=== PATIENT | female | born 1970 | race Caucasian/White ===

== ENCOUNTER 2019-05-19 14:15 | Emergency (ER) | payer BC, OTHER ==
[2019-05-19] MEDS ORDERED: SODIUM CHLORIDE 1,000 ML IV STA (14:26)
[2019-05-19] MEDS ORDERED: ACETAMINOPHEN 1000 MG/100 ML VIAL (NON FORMULARY) IVPB ONE (14:26)
--- NOTE | 2019-05-19 14:26 | PDOC ---
Rapid Medical Evaluation Medical Evaluation: I have performed a brief in-person evaluation of this patient. The patient presents with a chief complaint of: sent by PCP for eval for abd pain; was taking Amoxicillin from 05/05 for tooth infection (x 1week); s/p abx, started getting generalized abd pain; PCP placed on her cipro and dicyclomine 2 days ago but pain still not improving; +nausea; denies vomiting, diarrhea, urinary complaints; hx of fibroidectomy, tonsillectomy Pertinent physical exam findings: In NAD, generalized abd tenderness (more along left side), no CVA tenderness I have ordered the following: Labs, urine The patient will proceed to the ED for further evaluation. 05/19/19 14:20
[2019-05-19 14:27] VITALS: BMI 30.7
[2019-05-19] MEDS ORDERED: ONDANSETRON 4 MG/2 ML VIAL IVPUSH ONE (14:27)
[2019-05-19 15:07] LABS: BASO % 0.3 % (0-2.0); EOS % 0.2 % (0-4.5); HEMATOCRIT 33.2 % (32.4-45.2); HEMOGLOBIN 10.5 GM/dL (10.7-15.3); LYMPH % 17.9 % (8-40); MCH 23.9 pg (25.7-33.7); MCHC 31.7 g/dl (32.0-36.0); MEAN CELL VOLUME 75.2 fl (80-96); MEAN PLT VOLUME 7.8 fl (7.5-11.1); MONO % 10.5 % (3.8-10.2); NEUT % 71.1 % (42.8-82.8); PLATELET COUNT 340 K/MM3 (134-434); RBC 4.42 M/mm3 (3.60-5.2); RDW 16.8 % (11.6-15.6); WHITE BLOOD COUNT 8.8 K/mm3 (4.0-10.0)
[2019-05-19 15:16] LABS: EPI CELLS 7.5 /HPF (0-5/HPF); HYALINE CASTS 6 /lpf (0-8); PH,URINE 5.5 (5.0-8.0); URINE APPEARANCE CLOUDY; URINE BACTERIA 4.7 /hpf (NEGATIVE); URINE BILIRUBIN NEGATIVE (NEGATIVE); URINE COLOR DK YELLOW; URINE GLUCOSE (UA) NEGATIVE (NEGATIVE); URINE KETONE 2+ (NEGATIVE); URINE LEUK ESTERASE NEGATIVE (NEGATIVE); URINE NITRITE NEGATIVE (NEGATIVE); URINE PROTEIN 1+ (NEGATIVE); URINE RBC 20 /hpf (0-4); URINE WBC 4 /hpf (0-5)
[2019-05-19 15:27] LABS: ALBUMIN 3.1 g/dl (3.4-5.0); BILIRUBIN,TOTAL 0.4 mg/dL (0.2-1); BLOOD UREA NITROGEN 5.9 mg/dL (7-18); CALCIUM 9.2 mg/dL (8.5-10.1); CREATININE 0.7 mg/dL (0.55-1.3); POTASSIUM 3.5 mmol/L (3.5-5.1); TOT PROT 7.2 g/dl (6.4-8.2)
[2019-05-19] MEDS ORDERED: ACETAMINOPHEN INJECTION 100 ML IVPB ONE (16:44)
[2019-05-19] MEDS ORDERED: ONDANSETRON 4 MG/2 ML VIAL ONE (16:44)
--- NOTE | 2019-05-19 16:57 | PDOC ---
History of Present Illness - General Chief Complaint: Pain Stated Complaint: ABD PAIN/SENT BY DR THRASHER Time Seen by Provider: 05/19/19 14:19 - History of Present Illness Initial Comments: 05/19/19 16:56 CHIEF COMPLAINT: abdominal pain HISTORY OF PRESENT ILLNESS: 49 F with hx of anxiety, chronic back pain, s/p fibroidectomy and tonsillectomy, presents to ED with abdominal pain x 2 weeks. Patient states she saw her dentist on 05/05 and was prescribed amoxicillin and has been experiencing abdominal pain since then. She reports one episode of bilious vomiting on 05/08. The pain is described as "like a rock in it, or like gas is shooting through" and is alleviated when sitting down. She saw her PCP Dr. Melo two days ago and was placed in cipro and bentyl but the pain has persisted. She denies any diarrhea. Last BM was two days ago and was normal. She denies any urinary frequency, dysuria, or hematuria. Patient reports returning from [place] and reports that she has been suffering a lot of financial stress after joining a vacation club while there. PAST MEDICAL HISTORY: anxiety, chronic back pain FAMILY HISTORY: Denies SOCIAL HISTORY: Denies tobacco, alcohol, illicit drug use. SURGICAL HISTORY: fibroidectomy, tonsillectomy ALLERGIES: ibuprofen, latex REVIEW OF SYSTEMS General/Constitutional: Denies fever or chills. Denies weakness, weight change. HEENT: Denies change in vision. Denies ear pain or discharge. Denies sore throat. Cardiovascular: Denies chest pain or shortness of breath. Respiratory: Denies cough, wheezing, or hemoptysis. Gastrointestinal: Generalized abdominal pain x 2 weeks.One episode of vomiting, no current nausea or vomiting. Denies diarrhea or constipation. Denies rectal bleeding. Genitourinary: Denies dysuria, frequency, or change in urination. Musculoskeletal: Denies joint or muscle swelling or pain. Denies neck or back pain. Skin and breasts: Denies rash or easy bruising. Neurologic: Denies headache, vertigo, loss of consciousness, or loss of sensation. Psychiatric: Denies depression or anxiety. PHYSICAL EXAM General Appearance: Pale, appropriately dressed. No apparent distress. HEENT: EOMI, PERRLA, normal ENT inspection, normal voice, TMs normal, pharynx normal. No conjunctival pallor. No photophobia, scleral icterus. Neck: Supple. Trachea midline. No tenderness, rigidity, carotid bruit, stridor , lymphadenopathy, or thyromegaly. Respiratory/Chest: Lungs CTAB. No shortness of breath, chest tenderness, respiratory distress, accessory muscle use. No crackles, rales, rhonchi, stridor , wheezing, dullness Cardiovascular: RRR. S1, S2. No JVD, murmur, bradycardia, tachycardia. Vascular Pulses: Dorsalis-Pedis (R): 2+, Dorsalis-Pedis (L): 2+ Gastrointestinal/Abdominal: Marked epigastric and RUQ tenderness. Hyperactive bowel sounds. Abdomen soft, non-distended. No tenderness or rebound tenderness. No organomegaly, pulsatile mass, guarding, hernia, hepatomegaly, splenomegaly. Lymphatic: No adenopathy, tenderness. Musculoskeletal/Extremities: Normal inspection. FROM of all extremities, normal capillary refill. Pelvis Stable. No CVA tenderness. No tenderness to extremities, pedal edema, swelling, erythema or deformity. Integumentary: Appropriate color, dry, warm. No cyanosis, erythema, jaundice or rash Neurologic: insurance claims processor II-XII intact. Fully oriented, alert. Appropriate mood/affect. Motor strength 5/5. No appreciable EOM palsy, facial droop or sensory deficit. Past History - Past Medical History Allergies/Adverse Reactions: Allergies Allergy/AdvReac Type Severity Reaction Status Date / Time ibuprofen [From Advil] Allergy Verified 05/19/19 14:24 latex Allergy Verified 05/19/19 14:24 COPD: No - Immunization History Immunization Up to Date: Yes - Suicide/Smoking/Psychosocial Hx Smoking History: Never smoked Hx Alcohol Use: No Drug/Substance Use Hx: No *Physical Exam - Vital Signs Last Vital Signs Temp Pulse Resp BP Pulse Ox 98.2 F 92 H 16 119/75 99 05/19/19 14:24 05/19/19 14:24 05/19/19 14:24 05/19/19 14:24 05/19/19 14:24 ED Treatment Course - LABORATORY CBC & Chemistry Diagram: 05/19/19 14:44 05/19/19 14:44 - ADDITIONAL ORDERS Additional order review: Laboratory Results 05/19/19 05/19/19 05/19/19 14:44 14:44 14:44 Sodium 136 Potassium 3.5 Chloride 102 Carbon Dioxide 26 Anion Gap 8 BUN 5.9 L Creatinine 0.7 Est GFR (CKD-EPI)AfAm 116.27 Est GFR (CKD-EPI)NonAf 100.32 Random Glucose 89 Calcium 9.2 Total Bilirubin 0.4 AST 24 ALT 45 Alkaline Phosphatase 82 Total Protein 7.2 Albumin 3.1 L Lipase 170 Urine Color Dk yellow Urine Appearance Cloudy Urine pH 5.5 Ur Specific [place] 1.026 Urine Protein 1+ H Urine Glucose (UA) Negative Urine Ketones 2+ H Urine Blood 2+ H Urine Nitrite Negative Urine Bilirubin Negative Urine Urobilinogen 1.0 Ur Leukocyte Esterase Negative Urine WBC (Auto) 4 Urine RBC (Auto) 20 Urine Casts (Auto) 6 U Epithel Cells (Auto) 7.5 Urine Bacteria (Auto) 4.7 Urine HCG, Qual Negative 05/19/19 14:44 RBC 4.42 MCV 75.2 L MCHC 31.7 L RDW 16.8 H MPV 7.8 Neutrophils % 71.1 Lymphocytes % 17.9 Monocytes % 10.5 H Eosinophils % 0.2 Basophils % 0.3 - RADIOLOGY Radiology Studies Ordered: Category Date Time Status ABDOMEN & PELVIS CT WITH CONTR [CT] Stat CT Scan 05/19/19 16:17 Ordered - Medications Given in the ED: ED Medications Discontinued Medications Generic Name Dose Route Start Last Admin Trade Name Freq PRN Reason Stop Dose Admin Acetaminophen 1,000 mg 05/19/19 14:26 05/19/19 16:56 Ofirmev Injection - IVPB 05/19/19 14:27 1,000 mg ONCE ONE Administration Sodium Chloride 1,000 mls @ 1,000 mls/hr 05/19/19 14:26 05/19/19 16:56 Normal Saline - IV 05/19/19 15:25 1,000 mls/hr ASDIR STA Administration Medical Decision Making - Medical Decision Making 05/19/19 17:05 49 F with hx of anxiety, chronic back pain, s/p fibroidectomy and tonsillectomy , presents to ED with abdominal pain x 2 weeks. -labs, urine Labs unremarkable. 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 Heparin infusion protocol started. Discussed case with PCP Kameron. 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 Will consult vascular. Discussed case with Dr. Hahn, who recommends transfer to tertiary center given extent of thrombosis. 05/19/19 21:[address] Leggett with vascular service at [facility], will add lactic acid to eval for bowel involvement prior to transfer. Discussed case with ED attending MD Dr. Walker, who accepts patient for transfer. *DC/Admit/Observation/Transfer Diagnosis at time of Disposition: Mesenteric vein thrombosis - Discharge Dispostion Disposition: TRANSFER ACUTE CARE/OTHER HOSP - Referrals Referrals: Anuel Melo MD [Primary Care Provider] - - Patient Instructions - Post Discharge Activity - Transfer to Acute Care Facility Receiving Facility: [facility]
[2019-05-19] MEDS ORDERED: HEPARIN NA (PORCINE) 5,000 UNITS/ML 1ML VIAL IVPUSH PRN ×2 (19:47)
[2019-05-19] MEDS ORDERED: HEPARIN - 25,000 UNIT in SODIUM CHLORIDE 495 ML IV SCH (20:00)
[2019-05-19] MEDS ORDERED: morphine CARPU-JECT 2 MG/1 ML DISP.SYRIN IVPUSH ONE (22:39)
[2019-05-19] MEDS ORDERED: MORPHINE SULFATE 2 MG/ML VIAL ONE (23:26)
[2019-05-20 03:46] VITALS: BP 103/57; PULSE 75; TEMP 98.6
== END 2019-05-20 00:20 | disposition short-term general hospital (02) ==
LOC: JER 14:15
PROC: 3E033NZ Introduction of Analgesics, Hypnotics, Sedatives into Peripheral Vein, Percutaneous Approach (ICD-10-PCS; principal; 2019-05-19)
PROC: 3E033NZ Introduction of Analgesics, Hypnotics, Sedatives into Peripheral Vein, Percutaneous Approach (ICD-10-PCS; 2019-05-19)
PROC: 3E033GC Introduction of Other Therapeutic Substance into Peripheral Vein, Percutaneous Approach (ICD-10-PCS; 2019-05-19)
PROC: 3E033GC Introduction of Other Therapeutic Substance into Peripheral Vein, Percutaneous Approach (ICD-10-PCS; 2019-05-19)
DX: I81 Portal vein thrombosis (principal); M54.9 Dorsalgia, unspecified; G89.29 Other chronic pain; F41.9 Anxiety disorder, unspecified; Z88.6 Allergy status to analgesic agent; Z91.040 Latex allergy status
CPT/HCPCS: 36415; 74177-TC; 80053; 81003; 83605; 83690; 84703; 85025; 99284-25; J0131; J1644; J7030